=== PATIENT | male | born 1960 | race African-American/Black ===

== ENCOUNTER 2016-10-01 11:32 | Emergency (ER) | payer MEDICAID ==
[~2016-10-01] VITALS: Ht 165.1 cm; Wt 65.0 kg
[2016-10-01 14:52] VITALS: BP 122/73
== END 2016-10-01 18:39 | disposition home or self-care (01) ==
LOC: ER 11:32
DX: S60.221A Contusion of right hand, initial encounter (principal); F17.200 Nicotine dependence, unspecified, uncomplicated; F12.10 Cannabis abuse, uncomplicated; W22.01XA Walked into wall, initial encounter; Y93.89 Activity, other specified; Y92.89 Other specified places as the place of occurrence of the external cause; Y99.8 Other external cause status
CPT/HCPCS: 29125; 73130; 99284

== ENCOUNTER 2017-10-11 09:23 | Emergency (ER) | payer MEDICAID ==
[~2017-10-11] VITALS: Ht 165.1 cm; Wt 65.0 kg
[2017-10-11] MEDS ORDERED: ACETAMINOPHEN WITH CODEINE 300/30MG TABLET PO ONE (11:00)
[2017-10-11] MEDS ORDERED: IBUPROFEN 800MG TABLET PO ONE (11:15)
[2017-10-11] MEDS ORDERED: DOXYCYCLINE HYCLATE 100MG CAPSULE PO ONE (11:15)
[2017-10-11 12:06] VITALS: BP 168/78
== END 2017-10-11 12:08 | disposition home or self-care (01) ==
LOC: ER 09:23
DX: L03.113 Cellulitis of right upper limb (principal); F17.200 Nicotine dependence, unspecified, uncomplicated; Z88.2 Allergy status to sulfonamides
CPT/HCPCS: 99283

== ENCOUNTER 2018-05-29 08:46 | Emergency (ER) | payer MEDICAID ==
[~2018-05-29] VITALS: Ht 165.1 cm; Wt 64.0 kg
[2018-05-29 08:53] VITALS: BP 146/79
== END 2018-05-29 11:31 | disposition home or self-care (01) ==
LOC: ER 08:46
DX: R07.81 Pleurodynia (principal); F12.10 Cannabis abuse, uncomplicated; Z88.2 Allergy status to sulfonamides; Z98.890 Other specified postprocedural states
CPT/HCPCS: 71111; 99283

== ENCOUNTER 2020-11-06 19:10 | Emergency (ER) | payer MEDICAID ==
[~2020-11-06] VITALS: Ht 165.1 cm; Wt 67.0 kg
[2020-11-06] MEDS ORDERED: IBUPROFEN 600MG TABLET PO STA (21:49)
[2020-11-06] MEDS ORDERED: ACETAMINOPHEN 325MG TABLET PO STA (21:49)
[2020-11-06] MEDS ORDERED: HYDR-4001 MT (23:37)
[2020-11-06 23:43] VITALS: BP 136/66
== END 2020-11-07 | disposition home or self-care (01) ==
LOC: ER 19:10
DX: S92.425A Nondisplaced fracture of distal phalanx of left great toe, initial encounter for closed fracture (principal); I10 Essential (primary) hypertension; E78.00 Pure hypercholesterolemia, unspecified; F12.10 Cannabis abuse, uncomplicated; Z98.890 Other specified postprocedural states; Z88.2 Allergy status to sulfonamides; W22.8XXA Striking against or struck by other objects, initial encounter; Y93.89 Activity, other specified; Y92.018 Other place in single-family (private) house as the place of occurrence of the external cause
CPT/HCPCS: 29515; 73660; 99283

== ENCOUNTER 2022-08-27 08:54 | Emergency (ER) | payer BC, MEDICAID ==
[~2022-08-27] VITALS: Ht 165.1 cm; Wt 65.0 kg
[~2022-08-27 08:54] MED LIST: HYDR-4001 MT
[2022-08-27 08:59] VITALS: BP 151/83; PULSE 77; RESP 16; TEMP 98.4; O2SAT 98
[2022-08-27] MEDS ORDERED: LIDOCAINE HCL 1% 20ML VIAL (Pyxis) INJ INFIL NR (11:00)
== END 2022-08-27 12:32 | disposition home or self-care (01) ==
LOC: ER 08:54
DX: S61.012A Laceration without foreign body of left thumb without damage to nail, initial encounter (principal); F12.10 Cannabis abuse, uncomplicated; I10 Essential (primary) hypertension; E78.00 Pure hypercholesterolemia, unspecified; Z98.890 Other specified postprocedural states; Z88.2 Allergy status to sulfonamides; W26.0XXA Contact with knife, initial encounter; Y93.89 Activity, other specified; Y92.89 Other specified places as the place of occurrence of the external cause; Y99.8 Other external cause status
CPT/HCPCS: 73140; 12001; 99283; Z7610 ×2